=== PATIENT | female | born 1985 | race Caucasian/White ===

== ENCOUNTER 2017-07-20 16:42 | Emergency (ER) | payer MEDICAID, OTHER ==
[~2017-07-20] VITALS: Ht 162.6 cm; Wt 117.5 kg
[2017-07-20 17:01] VITALS: Ht 162.6 cm; Wt 117.5 kg
[2017-07-20] MEDS ORDERED: ONDANSETRON 4 MG INJ IV STA (18:59)
[2017-07-20] MEDS ORDERED: MECLIZINE 12.5 MG TAB PO ONE (19:00)
--- NOTE | 2017-07-20 19:08 | ERD ---
ER Documentation Chief Complaint Date/Time DATE: 07/20/17 TIME: 19:05 Chief Complaint N/V and dizziness x 3 days HPI This is a 31-year-old female who presents the emergency department today with dizziness nausea and vomiting for the past 3 days. States she try to get her primary care doctor but they do not take walk-in patients. Denies any headache , dysuria, blurred vision, chest pain or shortness of breath. States she is currently on her menstrual cycle ROS All systems reviewed and are negative except as per history of present illness. Medications Home Meds Active Scripts Meclizine Hcl* (Antivert*) 12.5 Mg Tab, 25 MG PO Q6H Y for DIZZINESS, #20 TAB Prov:LILA REES PA-C 07/20/17 Electrolyte,Oral (Pedialyte) 1,000 Ml Solution, 100 ML PO Q6 Y for vomiting, # 1000 ML Prov:LILA REES PA-C 07/20/17 Ondansetron Hcl* (Zofran*) 4 Mg Tablet, 4 MG PO Q6H for NAUSEA AND/OR VOMITING, #30 TAB Prov:LILA REES PA-C 07/20/17 Allergies Allergies: Coded Allergies: No Known Allergy (Unverified , 07/20/17) PMhx/Soc Medical and Surgical Hx: pt denies Medical Hx History of Surgery: Yes (gallbladder sx) Anesthesia Reaction: No Hx Neurological Disorder: No Hx Respiratory Disorders: No Hx Cardiac Disorders: No Hx Psychiatric Problems: No Hx Miscellaneous Medical Probl: No Hx Alcohol Use: Yes Hx Substance Use: No Hx Tobacco Use: No Smoking Status: Never smoker Physical Exam Vitals Vital Signs Date Time Temp Pulse Resp B/P Pulse Ox O2 Delivery O2 Flow Rate FiO2 07/20/17 17:01 98.8 88 18 154/86 99 Physical Exam Const: obese, NAD Head: Atraumatic Eyes: Normal Conjunctiva. WILIAN, EOM intact. No nystagmus ENT: Normal External Ears, Nose and Mouth. Neck: Full range of motion..~ No meningismus. Resp: Clear to auscultation bilaterally Cardio: Regular rate and rhythm, no murmurs Abd: Soft, non tender, non distended. Normal bowel sounds Skin: No petechiae or rashes Back: No midline or flank tenderness Ext: No cyanosis, or edema Neur: Awake and alert. CN 2=12 intact. No gait ataxia Psych: Normal Mood and Affect Result Diagram: 07/20/17191707/20/171917 Results 24 hrs Laboratory Tests Test 07/20/17 19:15 07/20/17 19:18 Urine Color [place] Urine Clarity SLIGHTLY CLOUDY Urine pH 5.0 Urine Specific [place] 1.026 Urine Ketones TRACEmg/dL Urine Nitrite NEGATIVEmg/dL Urine Bilirubin NEGATIVEmg/dL Urine Urobilinogen 1+mg/dL Urine Leukocyte Esterase NEGATIVELeu/ul Urine Microscopic RBC > 182/HPF Urine Microscopic WBC 3/HPF Urine Squamous Epithelial Cells FEW/HPF Urine Bacteria FEW/HPF Urine Mucus FEW/HPF Urine Hemoglobin 3+mg/dL Urine Glucose NEGATIVEmg/dL Urine Total Protein 2+mg/dl White Blood Count 11.110^3/ul Red Blood Count 5.5710^6/ul Hemoglobin 14.0g/dl Hematocrit 43.7% Mean Corpuscular Volume 78.5fl Mean Corpuscular Hemoglobin 25.1pg Mean Corpuscular Hemoglobin Concent 32.0g/dl Red Cell Distribution Width 13.9% Platelet Count 72519^3/UL Mean Platelet Volume 9.0fl Neutrophils % 69.3% Lymphocytes % 24.9% Monocytes % 4.1% Eosinophils % 0.9% Basophils % 0.4% Nucleated Red Blood Cells % 0.0/100WBC Neutrophils # 7.710^3/ul Lymphocytes # 2.810^3/ul Monocytes # 0.510^3/ul Eosinophils # 0.110^3/ul Basophils # 0.010^3/ul Nucleated Red Blood Cells # 0.010^3/ul Sodium Level 141mmol/L Potassium Level 3.5mmol/L Chloride Level 102mmol/L Carbon Dioxide Level 26mmol/L Anion Gap 17 Blood Urea Nitrogen 11mg/dl Creatinine 0.75mg/dl Glucose Level 98mg/dl Calcium Level 9.5mg/dl Total Bilirubin 0.4mg/dl Direct Bilirubin 0.00mg/dl Indirect Bilirubin 0.4mg/dl Aspartate Amino Transf (AST/SGOT) 45IU/L Alanine Aminotransferase (ALT/SGPT) 52IU/L Alkaline Phosphatase 131IU/L Total Protein 8.9g/dl Albumin 4.8g/dl Globulin 4.10g/dl Albumin/Globulin Ratio 1.17 Lipase 90U/L Current Medications Medications (Trade) Dose Ordered Sig/[place] Route PRN Reason Start Time Stop Time Status Last Admin Dose Admin Meclizine HCl (Antivert) 25 mg ONCE ONCE PO 07/20/17 19:00 07/20/17 19:03 DC 07/20/17 19:14 Ondansetron HCl (Zofran Inj) 4 mg ONCE STAT IV 07/20/17 18:59 07/20/17 19:03 DC 07/20/17 19:14 Procedures/MDM This is a 31-year-old female who presents the emergency department today complaining of nausea vomiting and dizziness for the past 3 days. This is the patient's first visit to the emergency department. She did try to go to primary care doctor but was unable to be seen as a walk-in. Given patient's complaints I did obtain laboratory workup Laboratory workup shows very mildly elevated white blood cell count. She is not anemic. Platelets are mildly elevated. Electrolytes are within normal limits. Glucose is within normal limits. Liver enzymes are within normal limits. Lipase is within normal limits UA negative for infection. There is greater than 182 red blood cells however patient is currently on her menstrual cycle. Urine test is negative EKG read and interpreted by Dr. Bolton Rate 74 beats per minute. No ST elevation. No QT prolongation. 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 Low suspicion for cardiac abnormality as a cause. Patient denies any headache or blurred vision I do not feel that she requires a head CT scan at this time. Low suspicion for acute hemorrhage, mass , abscess, meningitis. She is afebrile and otherwise well-appearing was instructed to return for any worsening of symptoms or change in symptoms Patient was given Zofran and meclizine here in the emergency department and symptoms improved she reported feeling well enough to go home. She will be given a prescription for Zofran pedialyte, and meclizine for home. At this time the patient is stable for discharge and outpatient management. Patient should follow up with their PCP in the next 1-2 days. They may return to the emergency department sooner for any persistent or worsening of symptoms. Patient understood and agreed with the plan. Discussed the patient with Dr. Bolton and she is in agreement with the plan. Departure Diagnosis: Primary Impression: Dizziness Additional Impression: Nausea and vomiting Vomiting type: unspecified Vomiting Intractability: non-intractable Qualified Code: R11.2 - Non-intractable vomiting with nausea, unspecified vomiting type Condition: LILA Thorpe PA-C Jul 20, 2017 19:08
[2017-07-20 19:41] LABS: ADD UMIC YES; UR ASCORBIC ACID NEGATIVE (NEGATIVE); UR BACTERIA FEW /HPF (NONE SEEN); UR BILIRUBIN (Dip) NEGATIVE (NEGATIVE); UR BLOOD (Dip) 3+ mg/dL (NEGATIVE); UR CLARITY SLIGHTLY CLOUDY (CLEAR); UR COLOR AMBER (YELLOW); UR GLUCOSE (Dip) NEGATIVE (NEGATIVE); UR KETONES (Dip) TRACE mg/dL (NEGATIVE); UR LEUKOCYTE ESTERASE (Dip) NEGATIVE Leu/ul (NEGATIVE); UR MUCUS FEW /HPF (NONE SEEN); UR NITRITE (Dip) NEGATIVE (NEGATIVE); UR RBC > 182 /HPF (0-5); UR SPECIFIC GRAVITY (Dip) 1.026 (1.003-1.030); UR SQUAMOUS EPITHELIAL CELL FEW /HPF (FEW); UR TOTAL PROTEIN (Dip) 2+ mg/dl (NEGATIVE); UR UROBILINOGEN (Dip) 1+ mg/dL (NEGATIVE)
[2017-07-20 19:43] LABS: BASOPHILS % 0.4 % (0.0-2.0); EOSINOPHILS # 0.1 10^3/ul (0.0-0.5); EOSINOPHILS % 0.9 % (0.0-7.0); HEMATOCRIT 43.7 % (37.0-47.0); LYMPHOCYTES # 2.8 10^3/ul (0.8-2.9); LYMPHOCYTES % 24.9 % (15.0-51.0); MEAN CORPUSCULAR HEMOGLOBIN 25.1 pg (29.0-33.0); MEAN CORPUSCULAR VOLUME 78.5 fl (82.0-101.0); MONOCYTE # 0.5 10^3/ul (0.3-0.9); MONOCYTES % 4.1 % (0.0-11.0); NEUTROPHIL # 7.7 10^3/ul (1.6-7.5); NEUTROPHILS % 69.3 % (39.0-77.0); PLATELET COUNT 420 10^3/UL (140-415); RED BLOOD COUNT 5.57 10^6/ul (4.20-5.40); RED CELL DISTRIBUTION WIDTH 13.9 % (11.5-14.5); WHITE BLOOD COUNT 11.1 10^3/ul (4.8-10.8)
[2017-07-20 20:02] LABS: ALBUMIN 4.8 g/dl (3.3-4.9); ALBUMIN/GLOBULIN RATIO 1.17; BILIRUBIN,INDIRECT 0.4 mg/dl (0-1.1); BILIRUBIN,TOTAL 0.4 mg/dl (0.2-1.3); CALCIUM 9.5 mg/dl (8.4-10.2); CREATININE 0.75 mg/dl (0.44-1.00); POTASSIUM 3.5 mmol/L (3.5-5.1); TOTAL PROTEIN 8.9 g/dl (6.1-8.1)
[2017-07-20] MEDS ORDERED: ONDA4TAB8 PO (20:19)
[2017-07-20] MEDS ORDERED: MECL12.574 PO (20:20)
[2017-07-20] MEDS ORDERED: ELEC100080 PO (20:20)
== END 2017-07-20 20:31 | disposition home or self-care (01) ==
LOC: FTE 16:42
DX: R42 Dizziness and giddiness (principal); R11.2 Nausea with vomiting, unspecified
CPT/HCPCS: 80053; 81001; 83690; 85025; 93005; 96374; J2405; Z7502; Z7610